=== PATIENT | female | born 1995 | race Caucasian/White ===

== ENCOUNTER 2022-01-27 21:54 | Emergency (ER) | payer OTHER | END 2022-01-27 23:51 | disposition left against medical advice (07) | LOC: ERS 21:54 | DX: Z53.21 Procedure and treatment not carried out due to patient leaving prior to being seen by health care provider (principal) | CPT/HCPCS: 72040 ==

== ENCOUNTER 2022-05-05 06:04 | Day surgery (SDC) | payer OTHER ==
[2022-05-04 09:57] VITALS: BMI 23.0
[2022-05-05] MEDS ORDERED: Bupivacaine/Epinephrine 0.25% 30 ML VIAL ONE ×2 (06:39→06:40)
[2022-05-05] MEDS ORDERED: Fentanyl 250 MCG/5 ML VIAL ONE (06:46)
[2022-05-05] MEDS ORDERED: Famotidine/PF 20 mg/2ml Vial ONE (07:19)
[2022-05-05] MEDS ORDERED: Midazolam HCl 2 mg/2 ml Vial ONE (07:19)
[2022-05-05] MEDS ORDERED: Scopolamine 1.5 mg/72 hour Patch ONE (07:19)
[2022-05-05] MEDS ORDERED: CEFAZOLIN 2 GM VIAL ONE (07:27)
[2022-05-05] MEDS ORDERED: Sodium Chloride 0.9% 100 ML ONE (07:27)
[2022-05-05] MEDS ORDERED: Dexmedetomidine 200 MCG/2 ML VIAL ONE (07:36)
[2022-05-05] MEDS ORDERED: SUGAMMADEX SODIUM 200 MG/2 ML VIAL ONE (07:36)
[2022-05-05] MEDS ORDERED: Ondansetron PF 4 MG/2 ML Vial ONE (08:00)
[2022-05-05] MEDS ORDERED: Dexamethasone 20 MG/5 ML VIAL ONE (08:00)
[2022-05-05] MEDS ORDERED: PHENYLEPHRINE-NS 100 MCG/ML 10 ML SYRINGE ONE (08:00)
[2022-05-05] MEDS ORDERED: Rocuronium Bromide 10 MG/ML (10ML VIAL) ONE (08:00)
[2022-05-05] MEDS ORDERED: Ketorolac Tromethamine 30 MG/ML VIAL ONE (08:00)
[2022-05-05] MEDS ORDERED: PROPOFOL 200 MG/20 ML VIAL ONE (08:00)
[2022-05-05] MEDS ORDERED: Fentanyl 100 MCG/2 ML VIAL ONE (10:24)
[2022-05-05] MEDS ORDERED: HYDROcodone/Acetaminophen 5/325 mg Tablet ONE (11:54)
== END 2022-05-05 12:15 | disposition home or self-care (01) ==
LOC: SDC 06:04
PROVIDERS: ATTEND Surgery
PROC: 0FT44ZZ Resection of Gallbladder, Percutaneous Endoscopic Approach (ICD-10-PCS; principal; 2022-05-05)
DX: K80.12 Calculus of gallbladder with acute and chronic cholecystitis without obstruction (principal); K66.0 Peritoneal adhesions (postprocedural) (postinfection); K21.9 Gastro-esophageal reflux disease without esophagitis; Z79.899 Other long term (current) drug therapy
CPT/HCPCS: 88304; C1776; J1100; J1885; J2250; J2405; J2704; J3010; J3490; S0028

== ENCOUNTER 2024-11-23 09:14 | Outpatient (CLI) | payer OTHER | END 2024-11-23 09:15 | disposition home or self-care (01) | LOC: ULT 09:14 | PROVIDERS: ATTEND Physician Assistant | DX: R79.89 Other specified abnormal findings of blood chemistry (principal); Z90.49 Acquired absence of other specified parts of digestive tract | CPT/HCPCS: 76705 ==

== ENCOUNTER 2025-03-11 11:30 | Outpatient (CLI) | payer OTHER | END 2025-03-11 11:31 | disposition home or self-care (01) | LOC: BICMRI 11:30 | PROVIDERS: ATTEND Orthopaedic Surgery | DX: M48.02 Spinal stenosis, cervical region (principal); M40.202 Unspecified kyphosis, cervical region; M50.21 Other cervical disc displacement, high cervical region; M50.221 Other cervical disc displacement at C4-C5 level; M50.222 Other cervical disc displacement at C5-C6 level; M43.8X2 Other specified deforming dorsopathies, cervical region; J34.89 Other specified disorders of nose and nasal sinuses | CPT/HCPCS: 72141 ==

== ENCOUNTER 2025-03-23 12:30 | Outpatient (CLI) | payer OTHER | END 2025-03-23 12:31 | disposition home or self-care (01) | LOC: LABBT 12:30 | PROVIDERS: ATTEND Orthopaedic Surgery | DX: Z01.818 Encounter for other preprocedural examination (principal); M48.02 Spinal stenosis, cervical region; M47.12 Other spondylosis with myelopathy, cervical region | CPT/HCPCS: 71046; 80048; 85025; 85610; 85730; 86850; 86900; 86901; 93005; 93010 ==